=== PATIENT | female | born 1965 | race Caucasian/White ===

== ENCOUNTER 2016-12-18 05:25 | Inpatient (IN) | payer BC ==
[~2016-12-18] VITALS: Ht 167.6 cm; Wt 117.0 kg
[2016-12-18] MEDS ORDERED: ceFAZolin 2 GM PREMIX 50 ML IV SCH (06:00)
[2016-12-18] MEDS ORDERED: SODIUM CHLORID 0.9% 500 ML IV PRN (06:00)
[2016-12-18] MEDS ORDERED: APREPITANT 40 MG CAP PO SCH (06:00)
[2016-12-18] MEDS ORDERED: metroNIDAZOLE 500 MG INJ 100 ML IV SCH (06:00)
[2016-12-18] MEDS ORDERED: POVIDONE IODINE 5% (ANTISEPSIS KIT) 4 APPLICATIONS EACH NARE PRN (06:00)
[2016-12-18] MEDS ORDERED: ONDANSETRON HCL 4 MG/2 ML VIAL IV PUSH SCH (06:00)
[2016-12-18] MEDS ORDERED: METOPROLOL TARTRATE 25 MG TAB PO PRN (06:00)
[2016-12-18] MEDS ORDERED: LACTATED RINGER'S 1000 ML IV PRN (06:00)
[2016-12-18] MEDS ORDERED: CHLORHEXIDINE GLUCONATE 2 % 1 PACK (2 CLOTHS) TOPICAL PRN (06:00)
[2016-12-18] MEDS ORDERED: ACETAMINOPHEN 1000 MG/100 ML 100 ML IV SCH (06:00)
[2016-12-18] MEDS ORDERED: SCOPOLAMINE 1.5 MG PATCH T-DERMAL SCH (06:00)
[2016-12-18] MEDS ORDERED: INSULIN HUMAN REGULAR 1,000 UNITS/10 ML VIAL SQ PRN (06:00)
[2016-12-18] MEDS ORDERED: OMEP20TA93 PO (07:00)
[2016-12-18] MEDS ORDERED: POTA595T (07:00)
[2016-12-18] MEDS ORDERED: PRAV20TA2 PO (07:00)
[2016-12-18] MEDS ORDERED: LISI2.5T3 PO (07:00)
[2016-12-18] MEDS ORDERED: VITATAB43 PO (07:00)
[2016-12-18] MEDS ORDERED: LORA-650 PO (07:00)
[2016-12-18] MEDS ORDERED: BIOTCAP PO (07:00)
[2016-12-18] MEDS ORDERED: CALC550C CHEW (07:00)
[2016-12-18] MEDS ORDERED: MIDAZOLAM HCL 2 MG/2 ML VIAL ONE (08:49)
[2016-12-18] MEDS ORDERED: SUGAMMADEX SODIUM 200 MG/2 ML VIAL IV PUSH ONE (08:50)
[2016-12-18] MEDS ORDERED: BUPIVACAINE/EPINEPHRINE 0.25% PF 10 ML VIAL INFIL ONE (11:24)
[2016-12-18] MEDS ORDERED: METHYLENE BLUE 10 MG/ML VIAL OTHER ONE (11:26)
[2016-12-18] MEDS: D5-1/2 NS + KCL 20 MEQ INJ 1,000 ML IV SCH ×3 (12:18→21:22)
[2016-12-18] MEDS ORDERED: SODIUM CHLORIDE 0.9% FLUSH 10 ML FLUSH IV FLUSH PRN (12:30)
[2016-12-18] MEDS ORDERED: diphenhydrAMINE HCL ELIXIR 12.5 MG/5 ML CUP PO PRN (12:30)
[2016-12-18] MEDS ORDERED: NALOXONE HCL 0.4 MG/ML AMP IV PUSH PRN (12:30)
[2016-12-18] MEDS ORDERED: ACETAMINOPHEN 325MG/HYDROcodone 7.5MG/15ML UDC PO PRN (12:30)
[2016-12-18] MEDS ORDERED: Post-op Orders (for Pharmacy) MISC OTHER ONE (12:30)
[2016-12-18] MEDS ORDERED: ENALAPRILAT 1.25 MG/ML VIAL IV PUSH PRN (12:30)
[2016-12-18] MEDS ORDERED: diphenhydrAMINE HCL 50 MG/ML VIAL IV PUSH PRN (12:30)
[2016-12-18] MEDS ORDERED: ONDANSETRON HCL 4 MG/2 ML VIAL IV PUSH PRN (12:30)
[2016-12-18] MEDS ORDERED: DO NOT ADM ANY ANTICOAGULANT DRUGS PRN (12:38)
[2016-12-18] MEDS ORDERED: *morphine SULFATE 8 MG/ML PERIprocedure ONLY ONE (12:55)
[2016-12-18] MEDS: MORPHINE SULFATE 30 MG/30 ML PCA IV SCH (12:57)
[2016-12-18] MEDS: PCA - TOTAL MG MORPHINE DELIVERED PER SHIFT SCH ×2 (14:00→22:00)
[2016-12-18] MEDS: METOCLOPRAMIDE HCL 10 MG/2 ML VIAL IV PUSH SCH ×2 (15:03→21:21)
[2016-12-18] MEDS: metroNIDAZOLE 500 MG INJ 100 ML IV SCH ×2 (15:52→23:13)
[2016-12-18] MEDS: ENOXAPARIN SODIUM 40 MG/0.4 ML SYRINGE SQ SCH (15:52)
[2016-12-18 16:00] VITALS: BP 134/70; PULSE 100; RESP 21; TEMP 96.9; O2SAT 96
[2016-12-18] MEDS: ACETAMINOPHEN 1000 MG/100 ML 100 ML IV SCH ×2 (18:01→23:13)
[2016-12-18 20:23] VITALS: BP 130/69; PULSE 82; RESP 16; TEMP 96.9; O2SAT 98
[2016-12-18 21:10] VITALS: RESP 18
[2016-12-18] MEDS: SODIUM CHLORIDE 0.9% FLUSH 10 ML FLUSH IV FLUSH SCH (21:22)
[2016-12-19] VITALS (9 sets, daily range): BP systolic 119–137; BP diastolic 58–67; PULSE 70–99; RESP 16–20; TEMP 96.1–98.2; O2SAT 94–100
[2016-12-19] MEDS: RESP: ALBUTEROL 2.5 MG/3 ML NEB (SCH) INH ×6 (00:34→23:56)
[2016-12-19] MEDS: D5-1/2 NS + KCL 20 MEQ INJ 1,000 ML IV SCH ×6 (01:38→22:15)
[2016-12-19] MEDS: METOCLOPRAMIDE HCL 10 MG/2 ML VIAL IV PUSH SCH ×2 (04:27→08:19)
[2016-12-19] MEDS: ACETAMINOPHEN 1000 MG/100 ML 100 ML IV SCH ×2 (05:10→11:58)
[2016-12-19] MEDS: PCA - TOTAL MG MORPHINE DELIVERED PER SHIFT SCH ×2 (06:00→14:00)
[2016-12-19 08:05] LABS: AUTOMATED NEUTROPHIL # 9.9 TH/MM3 (1.8-7.7); BASOPHIL % 0.1 % (0.0-2.0); EOSINOPHIL # 0.1 TH/MM3 (0-0.4); EOSINOPHIL % 0.4 % (0.0-4.0); HEMATOCRIT 36.4 % (35.0-46.0); HEMOGLOBIN 11.7 GM/DL (11.6-15.3); LYMPH % 9.5 % (9.0-44.0); LYMPHOCYTE # 1.1 TH/MM3 (1.0-4.8); MEAN CELL VOLUME 92.4 FL (80.0-100.0); MEAN CORPUSCULAR HEMOGLOBIN 29.8 PG (27.0-34.0); MEAN CORPUSCULAR HGB CONC 32.2 % (32.0-36.0); MEAN PLATELET VOLUME 8.8 FL (7.0-11.0); MONO % 5.1 % (0.0-8.0); MONOCYTE # 0.6 TH/MM3 (0-0.9); NEUT % 84.9 % (16.0-70.0); PLATELET COUNT 203 TH/MM3 (150-450); RED BLOOD COUNT 3.94 MIL/MM3 (4.00-5.30); RED CELL DISTRIBUTION WIDTH 13.4 % (11.6-17.2); WHITE BLOOD COUNT 11.7 TH/MM3 (4.0-11.0)
[2016-12-19] MEDS: PANTOPRAZOLE SOD 40 MG DELAYED RELEASE TAB PO SCH (08:18)
[2016-12-19] MEDS: metroNIDAZOLE 500 MG INJ 100 ML IV SCH (08:18)
[2016-12-19] MEDS: SODIUM CHLORIDE 0.9% FLUSH 10 ML FLUSH IV FLUSH SCH ×2 (08:19→21:00)
[2016-12-19] MEDS: MORPHINE SULFATE 30 MG/30 ML PCA IV SCH (08:34)
[2016-12-19 08:42] LABS: BICARBONATE 26.1 MEQ/L (21.0-32.0); CALCIUM 7.7 MG/DL (8.5-10.1); CREATININE 0.75 MG/DL (0.50-1.00); MAGNESIUM 2.2 MG/DL (1.5-2.5)
[2016-12-19] MEDS ORDERED: INFLUENZA VIRUS VACCINE (QUADRIVALENT) 0.5 ML SYR IM ONE (10:00)
[2016-12-19] MEDS ORDERED: PNEUMOCOCCAL POLYVALENT INJ 25 MCG/0.5 ML SYR IM ONE (10:00)
[2016-12-19] MEDS ORDERED: METOCLOPRAMIDE HCL 10 MG/2 ML VIAL IV PUSH PRN (12:30)
[2016-12-19] MEDS ORDERED: PILL SPLITTER OTHER PRN (13:00)
--- NOTE | 2016-12-19 15:49 | HHI.PR ---
Subjective Subjective Notes c/o abd pain/ nausea no flatus Objective Vitals/I&O Vital Signs Date Time Temp Pulse Resp B/P (MAP) Pulse Ox O2 Delivery O2 Flow Rate FiO2 12/19/16 12:00 97.1 90 18 124/58 (80) 99 12/18/16 13:45 Room Air 12/18/16 12:37 2 Labs Laboratory Tests Test 12/19/16 07:14 White Blood Count 11.7 Red Blood Count 3.94 Hemoglobin 11.7 Hematocrit 36.4 Mean Corpuscular Volume 92.4 Mean Corpuscular Hemoglobin 29.8 Mean Corpuscular Hemoglobin Concent 32.2 Red Cell Distribution Width 13.4 Platelet Count 203 Mean Platelet Volume 8.8 Neutrophils (%) (Auto) 84.9 Lymphocytes (%) (Auto) 9.5 Monocytes (%) (Auto) 5.1 Eosinophils (%) (Auto) 0.4 Basophils (%) (Auto) 0.1 Neutrophils # (Auto) 9.9 Lymphocytes # (Auto) 1.1 Monocytes # (Auto) 0.6 Eosinophils # (Auto) 0.1 Basophils # (Auto) 0.0 CBC Comment DIFF FINAL Differential Comment Blood Urea Nitrogen 7 Creatinine 0.75 Random Glucose 119 Calcium Level 7.7 Magnesium Level 2.2 Sodium Level 137 Potassium Level 4.1 Chloride Level 103 Carbon Dioxide Level 26.1 Anion Gap 8 Estimat Glomerular Filtration Rate 82 Cardiovascular: Regular Abdomen: Post-op tenderness Extremities: Perfused Wound Wound : Wound Location: Abdomen Appearance: Clean & Dry A/P Assessment and Plan S/P lap duodenal switch POD #1 persistent nausea cont anti emetics ambulate change to full admission Aba Winter MD Dec 19, 2016 15:49
[2016-12-19] MEDS: ENOXAPARIN SODIUM 40 MG/0.4 ML SYRINGE SQ SCH (16:59)
[2016-12-19] MEDS: ACETAMINOPHEN 325MG/HYDROcodone 7.5MG/15ML UDC PO PRN ×2 (18:33→23:29)
[2016-12-20] MEDS: RESP: ALBUTEROL 2.5 MG/3 ML NEB (SCH) INH ×3 (03:32→11:47)
[2016-12-20] MEDS: D5-1/2 NS + KCL 20 MEQ INJ 1,000 ML IV SCH ×5 (04:18→21:06)
[2016-12-20] MEDS: ACETAMINOPHEN 325MG/HYDROcodone 7.5MG/15ML UDC PO PRN ×3 (05:35→17:32)
[2016-12-20 08:00] VITALS: BP 135/62; PULSE 97; RESP 19; TEMP 98.4; O2SAT 98
[2016-12-20 08:55] VITALS: O2SAT 97
[2016-12-20] MEDS: LISINOPRIL 5 MG TAB PO SCH (09:14)
[2016-12-20] MEDS: PANTOPRAZOLE SOD 40 MG DELAYED RELEASE TAB PO SCH (09:14)
[2016-12-20] MEDS: SODIUM CHLORIDE 0.9% FLUSH 10 ML FLUSH IV FLUSH SCH ×2 (09:16→21:00)
[2016-12-20 12:00] VITALS: BP 130/63; PULSE 95; RESP 17; TEMP 98.7; O2SAT 95
--- NOTE | 2016-12-20 15:17 | HHI.PR ---
Subjective Subjective Notes pt comfortable no flatus no bm Objective Vitals/I&O Vital Signs Date Time Temp Pulse Resp B/P (MAP) Pulse Ox O2 Delivery O2 Flow Rate FiO2 12/20/16 12:00 98.7 95 17 130/63 (85) 95 12/18/16 13:45 Room Air 12/18/16 12:37 2 Abdomen: Post-op tenderness Extremities: Perfused Narrative Exam susan serosang Wound Wound : Wound Location: Abdomen Appearance: Clean & Dry A/P Assessment and Plan S/P lap duodenal switch POD #2 cont ambulation possible d/c tomorrow Aba Winter MD Dec 20, 2016 15:17
[2016-12-20 16:00] VITALS: BP 165/79; PULSE 101; RESP 18; TEMP 98.4; O2SAT 99
[2016-12-20] MEDS: ENOXAPARIN SODIUM 40 MG/0.4 ML SYRINGE SQ SCH (16:59)
[2016-12-20 20:00] VITALS: BP 143/76; PULSE 95; RESP 17; TEMP 97.7; O2SAT 99
[2016-12-21] VITALS: BP 128/74; PULSE 86; RESP 17; TEMP 97.2; O2SAT 99
[2016-12-21] MEDS: D5-1/2 NS + KCL 20 MEQ INJ 1,000 ML IV SCH (02:16)
[2016-12-21] MEDS: ACETAMINOPHEN 325MG/HYDROcodone 7.5MG/15ML UDC PO PRN ×2 (02:44→09:11)
[2016-12-21 08:00] VITALS: BP 144/78; PULSE 91; RESP 20; TEMP 98.7; O2SAT 97
[2016-12-21] MEDS: SODIUM CHLORIDE 0.9% FLUSH 10 ML FLUSH IV FLUSH SCH (09:00)
[2016-12-21] MEDS: LISINOPRIL 5 MG TAB PO SCH (09:11)
[2016-12-21] MEDS: PANTOPRAZOLE SOD 40 MG DELAYED RELEASE TAB PO SCH (09:11)
[2016-12-21 10:43] VITALS: O2SAT 98
[2016-12-21 12:00] VITALS: BP 135/73; PULSE 81; RESP 20; TEMP 97.5; O2SAT 99
--- NOTE | 2016-12-25 23:42 | MP ---
cc: ANTIONETTE CALLOWAY LARS S. MD DATE OF SURGERY: 12/18/2016 DATE OF : 1965 PREOPERATIVE DIAGNOSIS Morbid obesity with a BMI of 42, complicated by essential hypertension, hypercholesterolemia. POSTOPERATIVE DIAGNOSIS Morbid obesity with a BMI of 42, complicated by essential hypertension, hypercholesterolemia. PROCEDURE: Laparoscopic biliopancreatic diversion with duodenal switch. SURGEON Antionette Calloway MD. GUI DEVELOPER: Adolfo Molina MD. Dr. Molina's assistance was necessary for the procedure due to the complexity of the procedure. Dr. Molina assisted with manipulation and exposure during the procedure. Dr. Molina was present for the entire procedure. The assistance provided by the hospital was utilized managing the camera during the operation. ANESTHESIA General endotracheal anesthesia ESTIMATED BLOOD LOSS Scant FINDINGS Fatty liver. Prior sleeve, no evidence of dilation of the stomach. SPECIMENS None COMPLICATIONS None. DESCRIPTION OF PROCEDURE: The patient was brought to the operating room and placed on the operating table in a supine position. A bilateral sequential inflation device was placed on the lower extremities. General anesthesia was instituted. A Melton catheter was placed. Antibiotics were initiated. The abdomen was prepped and draped sterilely. A point in the periumbilical region was anesthetized with 0.25% Marcaine with epinephrine. A skin incision was made. A 5 mm Optiview port was placed under direct vision and pneumoperitoneum created. Under direct vision two 12 mm left upper quadrant and a 5 mm left lower quadrant port was placed. Two 12 mm right upper quadrant ports were placed. Prior to placement of all ports the skin and peritoneum were anesthetized with 0.25% Marcaine with epinephrine. The falciform ligament was taken out of the field using a 2-0 nylon suture. Attention was focused on the duodenum. The pylorus was identified. A point 3 cm distal along the duodenum was identified. The peritoneum both medially and laterally along the duodenal bulb was dissected minimally using the Harmonic scalpel. The posterior duodenal space was further dissected using a Gold Finger followed by the laparoscopic band passer. The duodenum was then stapled 3 cm distal to the pylorus using the [place] Flex power stapler blue load. Bleeding points were controlled using the Harmonic. A 36-Greek ViSiGi bougie was placed at the start of the case. Attention was then focused on the lower abdomen. The patient was placed in Trendelenburg position. The ileocecal valve was identified. The bowel was measured proximally from the ileocecal valve to a distance of 120 cm. This was to be the common channel. This was marked with hemoclips. The bowel was measured further from this casey another 150 cm proximally. The small bowel was divided in this region using an [place] Flex stapler white load. The distal segment was marked. It was then brought up to the duodenum and a duodenoileostomy was created using a single layer hand sewn anastomosis. The biliopancreatic limb was then brought down to the clips that were marked initially at 120 cm and a ileoileostomy was created using an [place] Flex stapler white load. Two firings were taken, one proximally and one distally to create the anastomosis. The defect was then closed with a single blue firing of the stapler. The defect at the ileostomy in the mesentery was then closed with 2-0 silk suture in a running manner. Attention was then focused back at the duodenoileostomy. The bowel was clamped distal to the anastomosis. Methylene blue diluted with saline was instilled through the ViSiGi. The stomach was distended as well as the proximal bowel with no evidence of extravasation. A 18 round RICK was placed posterior to the gastrojejunostomy and pulled out through the 10 mm port site in the right upper quadrant. Evicel was then placed over the duodenoileostomy and ileoileostomy. The CO2 was released. All ports were removed. All skin incisions were closed with 4-0 Monocryl. The patient was awakened and taken to the recovery room stable. MD REDD Gentile/DOUGLAS /6:37 PM /11:32 PM NAZANIN
--- NOTE | 2016-12-25 23:42 | MP ---
cc: ANTIONETTE CALLOWAY LARS S. MD DATE OF SURGERY: 12/18/2016 DATE OF : 1965 PREOPERATIVE DIAGNOSIS Morbid obesity with a BMI of 42, complicated by essential hypertension, hypercholesterolemia. POSTOPERATIVE DIAGNOSIS Morbid obesity with a BMI of 42, complicated by essential hypertension, hypercholesterolemia. PROCEDURE: Laparoscopic biliopancreatic diversion with duodenal switch. SURGEON Antionette Calloway MD. CHIEF ENGINEERING DIVISION: Adolfo Molina MD. Dr. Molina's assistance was necessary for the procedure due to the complexity of the procedure. Dr. Molina assisted with manipulation and exposure during the procedure. Dr. Molina was present for the entire procedure. The assistance provided by the hospital was utilized managing the camera during the operation. ANESTHESIA General endotracheal anesthesia ESTIMATED BLOOD LOSS Scant FINDINGS Fatty liver. Prior sleeve, no evidence of dilation of the stomach. SPECIMENS None COMPLICATIONS None. DESCRIPTION OF PROCEDURE: The patient was brought to the operating room and placed on the operating table in a supine position. A bilateral sequential inflation device was placed on the lower extremities. General anesthesia was instituted. A Melton catheter was placed. Antibiotics were initiated. The abdomen was prepped and draped sterilely. A point in the periumbilical region was anesthetized with 0.25% Marcaine with epinephrine. A skin incision was made. A 5 mm Optiview port was placed under direct vision and pneumoperitoneum created. Under direct vision two 12 mm left upper quadrant and a 5 mm left lower quadrant port was placed. Two 12 mm right upper quadrant ports were placed. Prior to placement of all ports the skin and peritoneum were anesthetized with 0.25% Marcaine with epinephrine. The falciform ligament was taken out of the field using a 2-0 nylon suture. Attention was focused on the duodenum. The pylorus was identified. A point 3 cm distal along the duodenum was identified. The peritoneum both medially and laterally along the duodenal bulb was dissected minimally using the Harmonic scalpel. The posterior duodenal space was further dissected using a Gold Finger followed by the laparoscopic band passer. The duodenum was then stapled 3 cm distal to the pylorus using the [place] Flex power stapler blue load. Bleeding points were controlled using the Harmonic. A 36-[place] ViSiGi bougie was placed at the start of the case. Attention was then focused on the lower abdomen. The patient was placed in Trendelenburg position. The ileocecal valve was identified. The bowel was measured proximally from the ileocecal valve to a distance of 120 cm. This was to be the common channel. This was marked with hemoclips. The bowel was measured further from this casey another 150 cm proximally. The small bowel was divided in this region using an [place] Flex stapler white load. The distal segment was marked. It was then brought up to the duodenum and a duodenoileostomy was created using a single layer hand sewn anastomosis. The biliopancreatic limb was then brought down to the clips that were marked initially at 120 cm and a ileoileostomy was created using an [place] Flex stapler white load. Two firings were taken, one proximally and one distally to create the anastomosis. The defect was then closed with a single blue firing of the stapler. The defect at the ileostomy in the mesentery was then closed with 2-0 silk suture in a running manner. Attention was then focused back at the duodenoileostomy. The bowel was clamped distal to the anastomosis. Methylene blue diluted with saline was instilled through the ViSiGi. The stomach was distended as well as the proximal bowel with no evidence of extravasation. A 18 round RICK was placed posterior to the gastrojejunostomy and pulled out through the 10 mm port site in the right upper quadrant. Evicel was then placed over the duodenoileostomy and ileoileostomy. The CO2 was released. All ports were removed. All skin incisions were closed with 4-0 Monocryl. The patient was awakened and taken to the recovery room stable. MD REDD Gentile/DOUGLAS /6:37 PM /11:32 PM NAZANIN
== END 2016-12-21 14:08 | disposition home or self-care (01) | DRG 621 ==
LOC: HSDC 05:25 → EDSTATUS 09:00 → HSDI 13:00 → INTOOBSV 13:00 → N07B 14:08 → OBSVTOIN 12-19 15:47
PROVIDERS: ADMIT Surgery; ATTEND Surgery
PROC: 0D194ZB Bypass Duodenum to Ileum, Percutaneous Endoscopic Approach (ICD-10-PCS; principal; 2016-12-18 08:57)
DX: E66.01 Morbid (severe) obesity due to excess calories (principal); K76.0 Fatty (change of) liver, not elsewhere classified; I10 Essential (primary) hypertension; E78.00 Pure hypercholesterolemia, unspecified; Z68.41 Body mass index [BMI] 40.0-44.9, adult; J45.909 Unspecified asthma, uncomplicated; K21.9 Gastro-esophageal reflux disease without esophagitis; M19.90 Unspecified osteoarthritis, unspecified site; Z98.84 Bariatric surgery status; Z23 Encounter for immunization; Z87.891 Personal history of nicotine dependence
CPT/HCPCS: 76937; 80048; 83735; 85025; 90471; 90472; 90686; 90732; 94150; 94640; 94664; G0008; G0009; J0131; J0690; J1650; J2250; J2270; J2405; J2765; J3480; J7120; J7613; J8501; Q2038